=== PATIENT | male | born 1975 | race Two or more races ===

== ENCOUNTER 2016-11-18 03:24 | Emergency (ER) | payer SELFPAY ==
[~2016-11-18] VITALS: Ht 182.9 cm; Wt 113.0 kg
[2016-11-18] MEDS ORDERED: HYDROCODONE/ACETAMINOPHEN 5/325MG TABLET PO STA (03:50)
[2016-11-18] MEDS ORDERED: TETANUS, DIPHTHERIA, PERTUSSIS VAC/PF 0.5ML (>7YR OLD) IM ONE (04:00)
[2016-11-18] MEDS ORDERED: LIDOCAINE HCL 1% 20ML VIAL (Pyxis) INJ MC ONE (04:00)
[2016-11-18] MEDS ORDERED: BACITRACIN ZINC OINT UDPKT TOP ONE ×2 (04:00)
[2016-11-18] MEDS ORDERED: KETOROLAC 60MG/2ML VIAL IM STA (04:23)
[2016-11-18] MEDS ORDERED: PIPERACILLIN/TAZ 3.375G PREMIX 50 ML IV ONE (05:30)
[2016-11-18 08:56] VITALS: BP 120/78
== END 2016-11-18 09:16 | disposition short-term general hospital (02) ==
LOC: ER 03:24
DX: S62.524B Nondisplaced fracture of distal phalanx of right thumb, initial encounter for open fracture (principal); S61.011A Laceration without foreign body of right thumb without damage to nail, initial encounter; F17.210 Nicotine dependence, cigarettes, uncomplicated; Z90.49 Acquired absence of other specified parts of digestive tract; W54.0XXA Bitten by dog, initial encounter; Y93.89 Activity, other specified; Y92.018 Other place in single-family (private) house as the place of occurrence of the external cause
CPT/HCPCS: 29130; 73140; 90471; 90715; 96372; 99285; J1885; J2543; J3490; X7700; Z7610